=== PATIENT | female | born 1925 | race Caucasian/White ===

== ENCOUNTER 2016-11-04 13:27 | Emergency (ER) | payer MEDICARE ==
[2013-06-30 14:20] VITALS: BMI 19.8
[~2016-11-04 13:27] MED LIST: ANTIVERT25 MG PO; ATIVAN1 MG PO; CALCIUM PO; GERITOL PO; K-DUR20 MEQ PO; MELATONIN 3 MG1 TAB PO; PHENERGAN25 M1 PO; PRAVACHOL80 MG PO; PRILOSEC20 MG PO; ZESTORETIC 20/11 TAB PO
== END 2016-11-04 16:50 | disposition home or self-care (01) ==
LOC: D.ER 13:27
DX: M62.830 Muscle spasm of back (principal); I10 Essential (primary) hypertension